=== PATIENT | female | born 2000 | race African-American/Black ===

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

== ENCOUNTER 2018-08-01 04:42 | Inpatient (IN) | payer MEDICAID ==
[2018-08-01] VITALS (27 sets, daily range): BP systolic 98–140; BP diastolic 46–90; PULSE 60–90; TEMP 97.4–98.4
[~2018-08-01] VITALS: Ht 162.6 cm; Wt 59.1 kg
[~2018-08-01 04:42] MED LIST: FLAGYL500 MG PO; PROAIR HFA0.09 MG/AC IH
--- NOTE | 2018-08-01 05:00 | NUR ---
0450- Patient brought up via wheelchair from ED. EFM placed on patient at this time. Patient grossly ruptured. 0500- SVE /-1 with clear fluid. 0505- Dr. Carlisle at nurse's station updated about patient. Patient admitted to labor at this time.
[2018-08-01 06:04] LABS: BASO % 0.3 % (0.0-2.0); EOS # 0.1 (0.0-0.7); EOS % 0.4 % (0-4.0); GRAN # 7.9 (1.4-6.5); GRAN % 68.3 % (42.2-75.2); HEMOGLOBIN 10.1 g/dl (12.0-15.0); LYMPH # 2.5 (1.2-3.4); LYMPH % 21.6 % (20.0-51.0); MEAN CELL VOLUME 79 fl (80.0-95.0); MEAN CORPUSCULAR HEMOGLOBIN 25 pg (26.0-32.0); MEAN CORPUSCULAR HGB CONC 31 g/dl (33.0-37.0); MONO # 0.9 (0.1-0.6); PLATELET COUNT 185 K/mm3 (130-400); RED BLOOD COUNT 4.12 M/mm3 (4.10-5.30); REDCELL DISTRIBUTION WIDTH-CV 15.5 % (11.5-14.5)
[2018-08-01 06:05] LABS: HEMATOCRIT 32.6 % (35.0-45.0)
--- NOTE | 2018-08-01 06:20 | NUR ---
Report from Melo VOSS to assume care of patient at this time. Patient breathing through contractions, reports rectal pressure. SVE 5/100/0. Patient states Stadol has worn off, asking about epidural placement.
--- NOTE | 2018-08-01 07:10 | NUR ---
0655: Zhane GROSSMAN at bedside. Patient sitting up for epidural placement. 0702: Lidocaine. 0704: Single Shot given by Zhane GROSSMAN, no adverse reactions noted. 0705: Epidural catheter placed. 0710: Patient repositioned to left tilt. Plan of care discussed. Questions answered. Call light within reach.
--- NOTE | 2018-08-01 07:25 | NUR ---
Patient comfortable with epidural. Farah catheter placed. SVE 6/100/0. Patient repositioned to left tilt with head of bed elevated, peanut ball in place. Encouraged to rest. FOB and mother at bedside, call light within reach.
--- NOTE | 2018-08-01 08:30 | NUR ---
at bedside. SVE /0. Patient repositioned to right tilt with peanut ball in place. Encouraged to notify RN with increased rectal pressure or pain.
[2018-08-01] MEDS ORDERED: MOTRIN 800800 MG/TAB PO (08:36)
--- NOTE | 2018-08-01 09:55 | NUR ---
0850: Patient reports rectal pressure with contractions. SVE 9/100/+1. 0910: Patient reports increased rectal pressure and urge to push. SVE AL/+1. 0922: to bedside. SVE Complete/+2. Patient and room prepped for pushing. Caitlin RN notified. Farah catheter dc'd. 0930: Initial push. 0937: Spontaneous vaginal delivery of viable female over 2nd degree right mediolateral episiotomy by . to abdomen, care assumed by Caitlin VOSS. 0940: Spontaneous vaginal delivery of placenta assisted by . Pitocin infusing at 333ml/hr. Fundus firm, lochia WNL. 0955: Repair completed by . Bladder drained with red candice. Pericare performed. Gown changed. Ice pack in place. Recovery period started. Fundus firm, scant lochia. Call light within reach.
--- NOTE | 2018-08-01 12:30 | NUR ---
Patient up to bathroom without difficulty. Voids 400ml. Pericare performed, gown changed, and underwear, peripad and ice pack in place. Plan of care discussed. Questions answered. Patient to Room 214 via wheelchair.
--- NOTE | 2018-08-01 20:30 | NUR ---
Assumed care at this time.
[2018-08-02 00:20] VITALS: BP 119/68; PULSE 89; TEMP 97.4
[2018-08-02 04:20] VITALS: BP 103/51; PULSE 77; TEMP 97.2
[2018-08-02 06:48] VITALS: BP 116/81; PULSE 87; TEMP 98.3
--- NOTE | 2018-08-02 11:56 | NUR ---
Initial visit attempt; Patient sleeping, Bookstore Clerk left card of congratulations for the of her daughter and information regarding the availability of spiritual care at [facility].
[2018-08-02 16:05] VITALS: BP 122/73; PULSE 85; TEMP 97.8
[2018-08-02 19:30] VITALS: BP 130/71; PULSE 84; TEMP 98.5
[2018-08-03 07:50] VITALS: BP 109/51; PULSE 79; TEMP 98.4
== END 2018-08-03 14:50 | disposition home or self-care (01) | DRG 806 ==
LOC: LDRO 04:42 → LDR 05:00 → OB 05:00
PROVIDERS: Obstetrics & Gynecology; ADMIT Obstetrics & Gynecology
PROC: 10E0XZZ Delivery of Products of Conception, External Approach (ICD-10-PCS; principal; 2018-08-01)
PROC: 0W8NXZZ Division of Female Perineum, External Approach (ICD-10-PCS; 2018-08-01)
DX: O42.92 Full-term premature rupture of membranes, unspecified as to length of time between rupture and onset of labor (principal); O99.354 Diseases of the nervous system complicating childbirth; Z37.0 Single live birth; G43.909 Migraine, unspecified, not intractable, without status migrainosus; O76 Abnormality in fetal heart rate and rhythm complicating labor and delivery; O99.52 Diseases of the respiratory system complicating childbirth; J45.909 Unspecified asthma, uncomplicated; O36.5930 Maternal care for other known or suspected poor fetal growth, third trimester, not applicable or unspecified; Z3A.38 38 weeks gestation of pregnancy
CPT/HCPCS: J0595; J2405; J2590; J2795; J7120

== ENCOUNTER 2021-10-01 08:23 | Inpatient (IN) | payer MEDICAID ==
[~2021-10-01] VITALS: Ht 160 cm; Wt 61.8 kg
[2021-10-01] VITALS (21 sets, daily range): BP systolic 98–133; BP diastolic 50–81; PULSE 51–98; TEMP 97–98.2
[~2021-10-01 08:23] MED LIST changes: +MOTRIN 800800 MG/TAB PO
--- NOTE | 2021-10-01 10:00 | NUR ---
0948 ANESTHESIA AT THE BEDSIDE FOR EPIDURAL PLACEMENT. PATIENT SAT UP ON SIDE OF BED AND POSITIONED. 0958 TEST DOSE GIVEN BY PLACEMENT OFFICER. PATIENT TOLERATING WELL. 1000 PATIENT LAID BACK FELT MOISTURE. SVE OF /-1.
[2021-10-01 10:08] LABS: BASO # 0.1 K/mm3 (0.0-0.2); BASO % 0.4 % (0.0-2.0); EOS # 0.1 K/mm3 (0.0-0.7); EOS % 0.9 % (0.0-4.0); GRAN # 12.6 K/mm3 (1.4-6.5); GRAN % 77.4 % (42.2-75.2); HEMOGLOBIN 10.4 g/dl (12.5-16.0); LYMPH # 2.2 K/mm3 (1.2-3.4); LYMPH % 13.5 % (20.0-51.0); MEAN CELL VOLUME 81 fl (80.0-100.0); MEAN CORPUSCULAR HEMOGLOBIN 26 pg (27-31); MEAN CORPUSCULAR HGB CONC 32 g/dl (33.0-37.0); MEAN PLATELET VOLUME 13.1 fl (7.4-10.4); MONO # 1.1 K/mm3 (0.1-0.6); MONO % 6.5 % (1.7-9.3); PLATELET COUNT 205 K/mm3 (130-400); RED BLOOD COUNT 4.08 M/mm3 (4.10-5.30); REDCELL DISTRIBUTION WIDTH-CV 14.3 % (11.5-14.5)
[2021-10-01] MEDS ORDERED: PRENATAL TABLET PO (10:12)
[2021-10-01 10:18] LABS: TRICYCLIC ANTIDEPRESS URINE NEGATIVE
[2021-10-01] MEDS ORDERED: 00186-0372-20 IH (11:06)
--- NOTE | 2021-10-01 11:15 | NUR ---
1056 PATIENT TURNED TO RIGHT SIDE 1110 PATIENT TURNED TO LEFT SIDE
--- NOTE | 2021-10-01 13:45 | NUR ---
1307 MD AND RN AT BEDSIDE. PATIENT PREPPED AND READY FOR DELIVERY. 1309 GRAYSON REMOVED WITH 200 CC OF URINE. 1311 PATIENT BEGAN TO PUSH WITH FAMILY AT BEDSIDE. 1313 MD APPLIED VACUUM THREE PULLS AND A POP OFF @ 1314 1315 HEAD DELIVERED WITH NUCAL X1 THAT WAS REDUCED AND DELIVERY OF REMAINDER OF INFANT. 1319 DELIVERY OF PLACENTA. 1322 METHERGINE GIVEN IM TO LEFT THIGH. MD REPORTED EBL OF 500. PATIENT CLEANED UP, FUNDUS FIRM AND AT U 1330 RECOVERY STARTED
--- NOTE | 2021-10-01 16:10 | NUR ---
PATIENT ASSITED UP TO THE RESTROOM. WAS UNABLE TO VOID. CLEANED UP AND ASSISTED BACK TO BED. HAS MEAL COMING SOON TO ROOM.
[2021-10-01] MEDS ORDERED: MOTRIN 800800 MG/TAB PO (21:55)
[2021-10-02 00:30] VITALS: BP 105/56; PULSE 83; TEMP 98.5
[2021-10-02 07:00] VITALS: BP 115/72; PULSE 94; TEMP 98.1
--- NOTE | 2021-10-02 09:05 | NUR ---
Initial visit; Patient thanked Clay Maker for offering congratulations and God's blessings for the of her daughter. Clay Maker thanked Mckenna for choosing [facility].
[2021-10-02 11:00] VITALS: BP 115/69; PULSE 76; TEMP 97.5
--- NOTE | 2021-10-02 11:07 | NUR ---
counter supply worker met with mother after consult received for the baby's UDS tested positive for methamphetamines. MOB was given ephedrine during labor which the designer confirmed would cause a positive test. MOB does have a history of THC use since the age of 14. Patient admits that she uses it for recreational use and that she stopped when she found out she was . This is the patient's second child. She has a 3 yr old daughter at home that is being cared for by family while here. FOB present and asleep during interaction. Patient moved to [place] at the beginning of her but moved back to be closer to family support and the fact the the FOB got a job up here. She is established with section 8 housing, food stamps and wic. Mother is hoping to breastfeed baby but is open to using formula if it doesn't work out. She has all necessary items to care for baby at home such as a crib, car seat, clothing and diapers. Mother endorses to having experienced depression after her first child. She states that she is physically, emotionally and financially in a better place this and knows she can reach out to her OBGYN for medication help.
[2021-10-02 15:33] VITALS: BP 105/55; PULSE 68; TEMP 97.6
[2021-10-02 20:00] VITALS: BP 103/57; PULSE 80; TEMP 98.4
[2021-10-03 00:17] VITALS: BP 102/51; PULSE 74; TEMP 99
[2021-10-03 08:48] VITALS: BP 104/58; PULSE 64; TEMP 97.7
--- NOTE | 2021-10-03 16:02 | NUR ---
DISCHARGE TEACHING COMPLETED DISCUSSED FOLLOW UP APPOINTMENTS, PRESCRIPTIONS, HEALTH HISTORY GIVEN, COPY OF EDUCATION, ORDER FOR FOLLOW UP APPOINTMENT AND DISCHARGE PAPERWORK GIVEN TO PATIENT. HEIDY INVITED AND ANSWERED.
== END 2021-10-03 16:15 | disposition home or self-care (01) | DRG 806 ==
LOC: LDRO 08:23 → LDR 09:01 → OB 09:01
PROVIDERS: ADMIT Obstetrics & Gynecology
PROC: 10D07Z6 Extraction of Products of Conception, Vacuum, Via Natural or Artificial Opening (ICD-10-PCS; principal; 2021-10-01)
PROC: 0KQM0ZZ Repair Perineum Muscle, Open Approach (ICD-10-PCS; 2021-10-01)
DX: O60.14X0 Preterm labor third trimester with preterm delivery third trimester, not applicable or unspecified (principal); O99.324 Drug use complicating childbirth; Z37.0 Single live birth; O44.43 Low lying placenta NOS or without hemorrhage, third trimester; O76 Abnormality in fetal heart rate and rhythm complicating labor and delivery; O70.1 Second degree perineal laceration during delivery; O99.344 Other mental disorders complicating childbirth; F32.A Depression, unspecified; F41.9 Anxiety disorder, unspecified; O99.52 Diseases of the respiratory system complicating childbirth; J45.909 Unspecified asthma, uncomplicated; F12.90 Cannabis use, unspecified, uncomplicated; Z3A.36 36 weeks gestation of pregnancy
CPT/HCPCS: J2210; J2405; J2540; J7120

== ENCOUNTER 2023-07-05 14:11 | Inpatient (IN) | payer MEDICAID ==
[~2023-07-05] VITALS: Ht 157.5 cm; Wt 65.9 kg
[2023-07-05] VITALS (13 sets, daily range): BP systolic 108–146; BP diastolic 35–95; PULSE 61–107; TEMP 98.3
[~2023-07-05 14:11] MED LIST changes: +00186-0372-20 IH; +PRENATAL TABLET PO
[2023-07-05] MEDS ORDERED: LR 1,000 ML IV SCH (14:30)
[2023-07-05] MEDS ORDERED: Lidocaine PF 2% (20 MG/ML) 5 ML VIAL ONE (14:43)
[2023-07-05] MEDS ORDERED: NS 10 ML IV ONE (14:43)
[2023-07-05] MEDS ORDERED: ROPIVACAINE 0.2% IV ONE (14:44)
--- NOTE | 2023-07-05 14:47 | NUR ---
1447 AT BEDSIDE. PATIENT REFUSES SVE. FHR TRACING REVIEWED. PLAN OF CARE UPDATED. 1517 PATIENT NOW COMFORTABLE AFTER EPIDURAL.MD AT BEDSIDE FOR SVE.PATIENT DETERMINED TO BE COMPLETE AND +1.
--- NOTE | 2023-07-05 14:55 | NUR ---
1445 NGOC HINES AT BEDSIDE. PRODCEDURE EXPLAINED AND CONSENT OBTAINED. PATIENT SETUP FOR EPIDURAL. SPO2 MONITOR INITIATED. FHR TRACING MATERNAL HEART RATE CORRELATES WITH SPO2 MONITOR. 1455 TEST DOSE. 1500 PATIENT ASSISTED BACK TO LEFT LATERAL POSITION IN BED. EFM AND TOCO ADJUSTED.
[2023-07-05] MEDS ORDERED: diphenhydrAMINE 25 MG CAP PO PRN (15:30)
[2023-07-05] MEDS ORDERED: Ondansetron 4 MG/2 ML VIAL IV PRN (15:30)
[2023-07-05] MEDS ORDERED: Naloxone 0.4 MG/ML VIAL IV PRN ×2 (15:30→16:00)
[2023-07-05] MEDS ORDERED: diphenhydrAMINE 50 MG/ML 1 ML VIAL IV PRN (15:30)
[2023-07-05] MEDS ORDERED: ePHEDrine 50 MG/10 ML VIAL IV PRN (15:30)
--- NOTE | 2023-07-05 15:30 | NUR ---
1517 AT [facility] DETERMINED TO BE COMPLETE. PATIENT SETUP FOR DELIVERY. 1518 PUSHING EFFORTS INITIATED. 1528 OF VIABLE MALE INFANT. INFANT PLACED ON MOTHER'S ABDOMEN. CARE OF THE GIVEN TO NURSERY RN. 1530 OF PLACENTA. PITOCIN BOLUS INITIATED AT 333ML/HR. PER POLICY AND PROTOCOL. REPAIR OF VAGINAL LACERATION. FUNDUS FIRM. ON FIRST FUNDAL CHECK MODERATE BLEEDING AND 2-3 CLOTS PASSED.
[2023-07-05] MEDS ORDERED: oxyCODONE 5 MG TAB PO PRN (16:00)
[2023-07-05] MEDS ORDERED: Measles/Mumps/Rubella Virus Vaccine Live w Diluent 0.5 ML VIAL SQ SCH (16:00)
[2023-07-05] MEDS ORDERED: Phenylephrine/Mineral Oil/Petrolatum 57 GM TUBE RC PRN (16:00)
[2023-07-05] MEDS ORDERED: Magnes Hydrox (MOM) 80 MG/ML 30 ML CUP PO PRN (16:00)
[2023-07-05] MEDS ORDERED: Mag/Al Hydrox/Simeth Susp 30 ML CUP PO PRN (16:00)
[2023-07-05] MEDS ORDERED: Witch Hazel 50% Pads Bulk TUB TP PRN (16:00)
[2023-07-05] MEDS ORDERED: Ibuprofen 800 MG TAB PO SCH (16:00)
[2023-07-05] MEDS ORDERED: Loratadine 10 MG TAB PO PRN (16:00)
[2023-07-05 16:14] LABS: MEAN CELL VOLUME 70 fl (80.0-100.0); MEAN CORPUSCULAR HGB CONC 31 g/dl (33.0-37.0); PLATELET COUNT 166 K/mm3 (130-400); RED BLOOD COUNT 4.43 M/mm3 (4.10-5.30); REDCELL DISTRIBUTION WIDTH-CV 17.3 % (11.5-14.5)
[2023-07-05 16:18] LABS: HEMOGLOBIN 9.5 g/dl (12.5-16.0); MEAN CORPUSCULAR HEMOGLOBIN 21 pg (27-31)
[2023-07-05 16:23] LABS: TRICYCLIC ANTIDEPRESS URINE NEGATIVE (NEGATIVE)
[2023-07-05] MEDS ORDERED: Sennosides/Docusate 8.6-50 MG TAB PO SCH (17:00)
[2023-07-05 17:04] LABS: BAND 1 % (0-10); HYPOCHROMIA 3+; LYMPHOCYTE 10 % (20.0-51.0); MICROCYTOSIS 2+; NEUTROPHILS 88 % (42.0-75.2); PLATELET ESTIMATE NORMAL (NORMAL)
[2023-07-05 17:05] LABS: ANISOCYTOSIS 1+; POLYCHROMASIA 1+
[2023-07-05 17:07] LABS: STOMATOCYTE 1+; TEAR DROP CELLS 1+
[2023-07-05] MEDS ORDERED: LR & Oxytocin 500 ML IV SCH (17:30)
[2023-07-05] MEDS ORDERED: traZODone 50 MG TAB PO PRN (21:00)
[2023-07-06 02:11] VITALS: BP 97/53; PULSE 71; TEMP 98
[2023-07-06 07:02] VITALS: BP 103/50; PULSE 65; TEMP 98.3
--- NOTE | 2023-07-06 15:05 | NUR ---
signal worker received consult for this patient due to testing positive for marijuana at the beginning of . SW met with patient's nurse whom reports no concerns for patient. Nurse reports patient has been appropriate with baby and father of the baby is also appropriate. SW reviewed patient's chart and she tested positive once at the beginning of , no positive since then. Patient's nurse reports both baby and mother tested negative for all substances. SW met with patient to complete assessment. Patient lives in [place]. PCP is Nina Wright and goes to [facility]. Pharmacy is [facility] in [place]. Insurance is [employer] and patient is aware of how to establish baby to her insurance. 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 Father of the baby is very supportive and patient has a good support system around them. Two other children in the home. Patient reports she has all supplies for baby including crib, car seat, diapers, clothing, etc. Patient established with [facility]. Patient reports she would like to attempt to breast feed and has a breast pump if she is able to breast feed. MICKI discussed patient testing positive for marijuana during the beginning of . Patient reports understanding and explained she stopped marijuana when she found out she was and is not going to use again because she would like to breast feed and know she cannot do so if she were using marijuana. MICKI discussed post depression with patient whom reports she had this during her first and [facility] and [facility] helped her get on anxiety/depression medications. SW explained [facility] has a counselor available if she would need her. Patient understood. MICKI provided mental health resources, [facility] Resource Guide and local resources in the surrounding areas. Patient has no concerns about returning home when medically ready for discharge. Due to testing positive at beginning of and history of marijuana usage, MICKI made CPS report: INtake ID [id number]
== END 2023-07-06 17:20 | disposition home or self-care (01) | DRG 807 ==
LOC: LDRO 14:11 → LDR 14:20 → OB 14:20
PROVIDERS: ADMIT Obstetrics & Gynecology
PROC: 10E0XZZ Delivery of Products of Conception, External Approach (ICD-10-PCS; principal; 2023-07-05)
PROC: 0KQM0ZZ Repair Perineum Muscle, Open Approach (ICD-10-PCS; 2023-07-05)
DX: O99.344 Other mental disorders complicating childbirth (principal); Z37.0 Single live birth; Z3A.39 39 weeks gestation of pregnancy; O70.1 Second degree perineal laceration during delivery; F32.A Depression, unspecified; F41.9 Anxiety disorder, unspecified; J45.909 Unspecified asthma, uncomplicated; O99.52 Diseases of the respiratory system complicating childbirth; O75.89 Other specified complications of labor and delivery
CPT/HCPCS: J2590; J2795; J7120